=== PATIENT | female | born 1960 | race Hispanic/Latino ===

== ENCOUNTER 2021-12-20 16:55 | Emergency (ER) | payer SELFPAY ==
[~2021-12-20] VITALS: Ht 170.2 cm; Wt 63.5 kg
[2021-12-20] MEDS ORDERED: KETOROLAC TROMETHAMINE 30 MG/ML VIAL IV STA (17:08)
[2021-12-20] MEDS ORDERED: METHYLPREDNISOLONE SOD SUCC 125 MG/2ML VIAL IV STA (17:08)
[2021-12-20] MEDS ORDERED: DIPHENHYDRAMINE HCL INJ 50 MG/ML VIAL IV STA (17:08)
[2021-12-20] MEDS ORDERED: METOCLOPRAMIDE HCL 10 MG/2ML VIAL IV STA (17:08)
[2021-12-20] MEDS ORDERED: SODIUM CHLORIDE 0.9% 1000ML 1,000 ML IV STA (17:08)
[2021-12-20] MEDS ORDERED: METOCLOPRAMIDE HCL 10 MG/2ML VIAL ONE (17:32)
[2021-12-20] MEDS ORDERED: KETOROLAC TROMETHAMINE 30 MG/ML VIAL ONE (17:33)
[2021-12-20] MEDS ORDERED: METHYLPREDNISOLONE SOD SUCC 125 MG/2ML VIAL ONE (17:33)
[2021-12-20] MEDS ORDERED: SODIUM CHLORIDE 0.9% 1000ML 1,000 ML ONE (17:33)
[2021-12-20] MEDS ORDERED: DIPHENHYDRAMINE HCL INJ 50 MG/ML VIAL ONE (17:33)
[2021-12-20] MEDS ORDERED: Morphine 4mg INJECTION 4 MG/ML INJ IV STA (17:35)
[2021-12-20] MEDS ORDERED: NICARDIPINE 20MG/200ML PREMIX 200 ML IV SCH (17:45)
[2021-12-20] MEDS ORDERED: NICARDIPINE 20MG/200ML PREMIX 200 ML ONE (17:55)
[2021-12-20] MEDS ORDERED: Morphine 4mg INJECTION 4 MG/ML INJ ONE (17:56)
[2021-12-20 18:46] VITALS: BP 129/63
== END 2021-12-20 19:00 | disposition other institution (70) ==
LOC: FSED 17:09
DX: R51.9 Headache, unspecified (principal); I61.8 Other nontraumatic intracerebral hemorrhage; I10 Essential (primary) hypertension
CPT/HCPCS: 70450; 99284; J1200; J1885; J2270; J2765; J2930; J7030

== ENCOUNTER 2022-09-04 12:10 | Emergency (ER) | payer OTHER | END 2022-09-04 13:00 | disposition left against medical advice (07) | LOC: ER 12:34 | DX: R51.9 Headache, unspecified (principal) ==